=== PATIENT | female | born 1985 | race African-American/Black ===

== ENCOUNTER 2024-11-11 15:46 | Emergency (ER) | payer MEDICAID, OTHER ==
[~2024-11-11] VITALS: Ht 177.8 cm; Wt 100.0 kg
[~2024-11-11 15:46] MED LIST: FERR1TAB25 PO; IBUP-779 PO; MULT-1146 PO
[2024-11-11 15:53] VITALS: O2SAT 99
[2024-11-11 16:39] VITALS: TEMP 36.4
[2024-11-11 16:45] LABS: BASOPHILS % 0.6 % (0.0-2.0); EOSINOPHILS % 3.0 % (0.0-5.0); HEMATOCRIT. 43.6 % (36.0-48.0); HEMOGLOBIN. 14.3 g/dL (12.0-16.0); LYMPHOCYTES % 28.0 % (20.0-50.0); MEAN PLATELET VOLUME 7.7 fl (7.4-10.4); MONOCYTES % 4.5 % (2.0-8.0); NEUTROPHILS % 63.9 % (40.0-76.0); PLATELET 327 x1000/uL (130-400); RED BLOOD CELL COUNT 4.94 mill/uL (4.2-5.4); RED CELL DISTRIBUTION WIDTH 15.4 % (11.6-14.6)
[2024-11-11] MEDS: ACETAMINOPHEN 325MG TABLET PO ONE (16:49)
[2024-11-11 17:01] LABS: CREATININE 0.8 mg/dL (0.6-1.0); UREA NITROGEN BLOOD 7 mg/dL (9-23)
[2024-11-11 17:03] LABS: ASPARTATE AMINOTRANSFERASE 17 IU/L (<34); BILIRUBIN DIRECT < 0.1 mg/dL (<=3.0)
[2024-11-11 17:04] LABS: BILIRUBIN TOTAL 0.3 mg/dL (0.1-1.0); PROTEIN TOTAL 5.9 g/dL (6.0-8.3)
[2024-11-11 17:20] LABS: B-HCG QUANTITATIVE 16267 mIU/mL (<6)
[2024-11-11 18:41] LABS: COLOR URINE RED (YELLOW); GLUCOSE URINE NEGATIVE (NEGATIVE); KETONES URINE 1+ (NEGATIVE); LEUKOCYTE ESTERASE URINE 1+ (NEGATIVE); NITRITE URINE NEGATIVE (NEGATIVE); OCCULT BLOOD URINE 3+ (NEGATIVE); PH URINE 5.5 (4.5-8.0); PROTEIN URINE 1+ (NEGATIVE); SPECIFIC GRAVITY URINE 1.021 (1.005-1.030); UROBILINOGEN URINE 0.2 E.U./dL (0.2-1.0)
[2024-11-11 19:06] LABS: CLARITY URINE TURBID (CLEAR)
[2024-11-11 19:08] LABS: BACTERIA URINE TRACE; RBC URINE TNTC /hpf (0-2); SQUAMOUS EPITHELIAL CELL URINE 1+ /lpf (RARE/1+)
[2024-11-11 19:09] LABS: MUCUS URINE TRACE /lpf (< = 2+)
[2024-11-11] MEDS ORDERED: CEPH500C2 MT (19:11)
[2024-11-11 19:15] VITALS: BP 116/46; PULSE 77; RESP 19; O2SAT 100
== END 2024-11-11 19:25 | disposition home or self-care (01) ==
LOC: ER 15:46
DX: O20.9 Hemorrhage in early pregnancy, unspecified (principal); R10.20 Pelvic and perineal pain unspecified side; Z3A.09 9 weeks gestation of pregnancy
CPT/HCPCS: 36415; 76801; 80048; 80076; 81003; 81025; 84702; 85025; 86850; 86900; 99284